=== PATIENT | male | born 1945 | race Caucasian/White ===

== ENCOUNTER → 2019-09-27 | Outpatient (CLI) | payer MEDICARE, BC ==
[~2019-09-27] MED LIST: ASPI-1158 MT; ATOR10TA MT; GABA-531 MT; TRIA0.2579 PO
== END | disposition home or self-care (01) ==
LOC: LAB 07:19
PROVIDERS: ATTEND Specialist
DX: R05 Cough (principal); Z20.828 Contact with and (suspected) exposure to other viral communicable diseases
CPT/HCPCS: U0003-CS

== ENCOUNTER → 2019-09-29 | Day surgery (SDC) | payer MEDICARE, BC ==
[~2019-09-29] VITALS: Ht 175.3 cm; Wt 72.6 kg
[~2019-09-29] MED LIST changes: +ACETAMINOPHEN 325MG TABLET PO PRN; +ATROPINE SULFATE 1MG/10ML SYR IV PRN; +FENTANYL CITRATE/PF 50MCG/ML 2ML VIAL ONE; +HEPARIN SODIUM 1,000 UNIT/1ML VIAL IV ONE; +IODIXANOL 320MG/ML 100 ML BOTTLE IV ONE; +LIDOCAINE HCL 1% 20ML VIAL (Pyxis) INJ ONE; +MIDAZOLAM HCL 2 MG/2 ML VIAL ONE; +NICARDIPINE 100MCG/ML 10ML VIAL (CATH LAB) IV ONE; +NITROGLYCERIN 50MCG/ML 10ML VIAL (CATH LAB) IV ONE; +ONDANSETRON HCL 4MG/2ML INJ IV PRN
== END | disposition home or self-care (01) ==
LOC: CCL 09:13
PROVIDERS: ATTEND Specialist
DX: I25.5 Ischemic cardiomyopathy (principal); I42.9 Cardiomyopathy, unspecified; I11.0 Hypertensive heart disease with heart failure; I50.22 Chronic systolic (congestive) heart failure; I25.10 Atherosclerotic heart disease of native coronary artery without angina pectoris; E78.5 Hyperlipidemia, unspecified; Z88.8 Allergy status to other drugs, medicaments and biological substances; Z88.5 Allergy status to narcotic agent; Z79.82 Long term (current) use of aspirin; Z79.899 Other long term (current) drug therapy; Z87.898 Personal history of other specified conditions; Z82.49 Family history of ischemic heart disease and other diseases of the circulatory system; Z98.890 Other specified postprocedural states
CPT/HCPCS: 93458; 99152; C1769; C1887; C1893; J1644; J2250; J3010; J3490; Q9967; G0500